=== PATIENT | female | born 1985 | race African-American/Black ===

== ENCOUNTER 2021-04-20 17:18 | Emergency (ER) | payer BC ==
[~2021-04-20] VITALS: Ht 180.3 cm; Wt 85.0 kg
[2021-04-20 18:39] VITALS: BP 115/40
[2021-04-20] MEDS ORDERED: SODIUM CHLORIDE 0.9% 1,000 ML IV ONE (18:45)
== END 2021-04-21 00:44 | disposition left against medical advice (07) ==
LOC: ER 17:18
DX: M25.511 Pain in right shoulder (principal); R07.89 Other chest pain; J02.9 Acute pharyngitis, unspecified; R50.9 Fever, unspecified; D57.00 Hb-SS disease with crisis, unspecified; Z53.21 Procedure and treatment not carried out due to patient leaving prior to being seen by health care provider
CPT/HCPCS: J7030